=== PATIENT | male | born 1955 | race Caucasian/White ===

== ENCOUNTER 2023-01-22 03:03 | Emergency (ER) | payer MEDICARE, OTHER, SELFPAY ==
[2023-01-22 03:11] VITALS: BP 180/101; PULSE 110; RESP 16; TEMP 36.6; O2SAT 98; BMI 34.0
--- NOTE | 2023-01-22 03:17 | CRLHL7_ITS ---
For Patients: As a result of the Century Cures Act, medical imaging exams and procedure reports are released immediately into your electronic medical record. You may view this report before your referring provider. If you have questions, please contact your health care provider. INDICATION: Flank pain TECHNIQUE: CT Abdomen and pelvis without i.v. contrast. Coronal and sagittal reformats were obtained. COMPARISON: 03/16/2016 FINDINGS: Lower chest: Unremarkable. Liver: Moderate fatty infiltration of the liver is present. Spleen: Unremarkable. Pancreas: Unremarkable. Gallbladder: Numerous layering gallstones are noted in the gallbladder neck. Kidney: There is a stone in the mid left ureter measuring 6 mm and a 10 mm stone is seen in the left ureteropelvic junction because mild renal pelvic caliectasis. A parapelvic cyst is present within the right renal sinus. There is a nonobstructing stone in the left renal pelvis measuring 1.2 cm and a cluster of small caliceal stones are seen in the posterior left renal midzone. A small focus of gas is present within the left renal midzone calyx. Adrenal: Unremarkable. Bowel: Unremarkable. The appendix is normal in appearance and size. Vascular: Unremarkable. Lymph: Unremarkable. Peritoneum: Unremarkable. No pneumoperitoneum is seen. No significant ascites is noted. Pelvis: A small focus of gas is present within the decompressed bladder. Soft tissue: Unremarkable. Bone: Unremarkable for age. IMPRESSIONS: 1. There is a stone in the mid left ureter measuring 6 mm and a 10 mm stone is seen in the left ureteropelvic junction because mild renal pelvic caliectasis. 2. A small focus of gas is present within the left renal midzone calyx. Correlation with history and urinalysis is recommended to exclude a gas-forming urinary tract infection or recent intervention. Dictated by Antwon Rush MD @ 01/22/2023 3:46:28 AM Please note that all CT scans at this facility use dose modulation, iterative reconstruction, and/or weight-based dosing when appropriate to reduce radiation dose to as low as reasonably achievable. Dictated by: Antwon Rush MD @ 01/22/2023 03:46:32 (Electronically Signed)
--- NOTE | 2023-01-22 03:19 | ED.ABDPAIN ---
HPI - Abdominal Pain General Chief Complaint: Flank Pain Stated Complaint: Kidney Stones Time Seen by Provider: 01/22/23 03:08 History of Present Illness HPI narrative: Pt is a 67 year old gentleman with a long history of renal lithiasis who presents with 12 hours of left flank pain. Pt has had no change in his urination. No fever or chills, nausea or vomiting. Pain is severe and localized to the left flank. No recent history of stones. No other related symptoms. Pt otherwise has been feeling well. Related Data Previous Rx's Medication Instructions Recorded tamsulosin 0.4 mg capsule (Flomax) 0.4 mg PO DAILY Kidney Stones #14 01/22/23 caps Allergies Allergy/AdvReac Type Severity Reaction Status Date / Time No Known Drug Allergies Allergy Verified 01/22/23 03:13 Review of Systems Status of ROS Reports: 10 or more systems reviewed and unremarkable except as noted in History and below [facility] Medical History History of kidney stones ?Z87.442 - Personal history of urinary calculi (ICD-10) Social History Smoking Status: Never smoker Do you use any of these nicotine containing products: None How often do you have a drink containing alcohol: monthly or less How many standard drinks containing alcohol do you have on a typical day: 1 or 2 How often do you have six or more drinks on one occasion: Never AUDIT-C Alcohol total score: 1 Non-prescribed substance use: denies use Exam Narrative: Exam Narrative: EXAM GENERAL: Patient appears comfortable and well. EYES: No scleral icterus. LYMPH: No supraclavicular or cervical lymphadenopathy. SKIN: Visible skin seen during exam normal or with benign process only. EXT: No dependent lower extremity pedal edema. HEART: Regular rate and rhythm with no murmurs, rubs, or gallops. LUNGS: Clear to auscultation bilaterally with no crackles or wheezes. ABD: Soft, non tender, non distended. PSYCH: Good eye contact, speech is not pressured. Const: Vital Signs, click to edit/add: Vital Signs - 24 hr 01/22/23 03:11 01/22/23 03:35 01/22/23 03:30 Temperature 97.9 F 97.9 F Pulse Rate [Left P ulse Oximeter] 110 H Respiratory Rate 16 Blood Pressure [Ri ght Upper Arm] 180/101 H Pulse Oximetry 98 98 Oxygen Delivery Me thod Room Air Course Course Hospital Course: Pt seen and examined. CT abd and pelvis, cbc, bmp, ua ordered. 1 liter normal saline, 30 mg of Toradol and 4 mg of Zofran given. Vital Signs Vital signs: Initial Vital Signs Temperature 97.9 F 01/22/23 03:11 Temperature Source Temporal Artery Scan 01/22/23 03:11 Pulse Rate 110 H 01/22/23 03:11 Respiratory Rate 16 01/22/23 03:11 Blood Pressure 180/101 H 01/22/23 03:11 Blood Pressure Mean 127 01/22/23 03:11 Blood Pressure Position Sitting 01/22/23 03:11 Pulse Oximetry 98 01/22/23 03:11 Oxygen Delivery Method Room Air 01/22/23 03:11 Vital Signs Temperature 97.9 F 01/22/23 03:11 Pulse Rate 110 H 01/22/23 03:11 Respiratory Rate 16 01/22/23 03:11 Blood Pressure 180/101 H 01/22/23 03:11 Pulse Oximetry 98 01/22/23 03:11 Oxygen Delivery Method Room Air 01/22/23 03:11 Temperature 97.9 F 01/22/23 03:35 Pulse Rate 110 H 01/22/23 03:11 Respiratory Rate 16 01/22/23 03:11 Blood Pressure 180/101 H 01/22/23 03:11 Pulse Oximetry 98 01/22/23 03:30 Oxygen Delivery Method Room Air 01/22/23 03:11 MDM - Abdominal Pain MDM Narrative Medical decision making narrative: Pt is a 67 year old gentleman with a history of kidney stones who presents with left flank pain. Pt is noted to have a 10 mm and 6 mm stone in the left ureter. Pt improved with normal saline, toradol and zofran. Pt will be discharged to home on Flomax with prn oxycodone with PCP follow up this week and a likely Urology referral to follow. Medical Records Attestation: I reviewed the patient's medical records. Lab Data Labs: Lab Results 01/22/23 01/22/23 Range/Units 03:30 03:35 WBC 12.20 H (4.50-11.00) K/uL RBC 4.96 (4.30-5.90) m/uL Hgb 14.6 (13.5-17.5) gm/dL Hct 43.5 (37.0-53.0) % MCV 88 (80-100) fL MCH 29 (26-34) pg MCHC 34 (32-36) gm/dL RDW Coeff of Gin 12.2 (11.5-15.5) % Plt Count 160 (140-440) K/uL Neut % (Auto) 83.0 H (42.0-72.0) % Lymph % (Auto) 7.9 L (20-44) % [place] % (Auto) 8.4 (0.0-11.0) % Eos % (Auto) 0.1 (0.0-7.0) % Baso % (Auto) 0.1 (0.0-3.0) % Neut # (Auto) 10.10 H (1.7-7.0) K/uL Lymph # (Auto) 1.00 (0.90-2.90) K/uL [place] # (Auto) 1.00 H (0.00-0.90) K/UL Eos # (Auto) 0.00 (0.00-0.50) K/uL Baso # (Auto) 0.00 (0.00-0.30) K/uL Sodium 132 L (135-149) mmol/L Potassium 4.3 (3.6-5.1) mmol/L Chloride 98 (96-114) mmol/L Carbon Dioxide 27 (20-32) mmol/L BUN 15 (7-30) mg/dL Creatinine 1.1 (0.5-1.5) mg/dL Estimated Creat Clear 66.06 Estimated GFR 74 ml/min Glucose 151 H (60-115) mg/dL Calcium 9.0 (8.4-10.6) mg/dL Urine Color Yellow (Yellow) Urine Appearance Clear (Clear) Urine pH 5.5 (5.0-8.5) Ur Specific [place] 1.025 (1.000-1.030) Urine Protein Trace A (Negative) Urine Glucose (UA) Negative (Negative) Urine Ketones Trace A (Negative) Urine Blood 2+ A (Negative) Urine Nitrite Negative (Negative) Urine Bilirubin Negative (Negative) Urine Urobilinogen 0.2 (0.2-1.0) Ur Leukocyte Esterase 1+ A (Negative) Urine RBC 0-2 (0-2) Urine WBC 5-10 A (0-5) Ur Squamous Epith Cells Few (None-Few) Urine Bacteria Few A (None) Discharge Plan Discharge Clinical Impression: Renal lithiasis Patient Disposition: Home, Self-Care Condition: Stable Instructions: Kidney Stones (ED) Additional Instructions: Oxycodne and Flomax as discussed Plenty of fluids Follow up with PCP this coming week to discuss Urology referral Activity Level: No Restrictions Discharge Diet: Regular Prescriptions: New tamsulosin [Flomax] 0.4 mg capsule 0.4 mg PO DAILY Qty: 14 2RF Follow Up/Referrals: Josafat Do MD [Primary Care Provider] - Stand Alone Forms: [employer] Info Instructions
[2023-01-22 03:30] VITALS: O2SAT 98
[2023-01-22] MEDS: 0.9 % SODIUM CHLORIDE 1000 ml 1,000 ML IV (03:34)
[2023-01-22] MEDS: ONDANSETRON 2 MG/ML inj 4 MG IVP (03:34)
[2023-01-22 03:35] VITALS: TEMP 36.6
[2023-01-22] MEDS: KETOROLAC 30 MG/ML inj IVP (03:35)
[2023-01-22 03:41] LABS: Basophils Percent Auto 0.1 % (0.0-3.0); Eosinophils Percent Auto 0.1 % (0.0-7.0); Hematocrit 43.5 % (37.0-53.0); Hemoglobin* 14.6 gm/dL (13.5-17.5); Immature Granulocytes Pct Auto 0.5 %; Lymphocytes Percent Auto 7.9 % (20-44); Mean Corpuscular HGB Conc 34 gm/dL (32-36); Mean Corpuscular Hemoglobin 29 pg (26-34); Mean Corpuscular Volume 88 fL (80-100); Monocytes Percent Auto 8.4 % (0.0-11.0); Platelet Count* 160 K/uL (140-440); RDW Coefficient of Variation % 12.2 % (11.5-15.5); Red Blood Count 4.96 m/uL (4.30-5.90)
[2023-01-22 03:51] LABS: Appearance Urine Clear (Clear); Bilirubin Urine Negative (Negative); Blood Urine 2+ (Negative); Color Urine Yellow (Yellow); Glucose Urine Negative (Negative); Ketones Urine Trace (Negative); Leukocyte Esterase Urine 1+ (Negative); Nitrite Urine Negative (Negative); Protein Urine Trace (Negative); Specific Gravity Urine 1.025 (1.000-1.030); Urobilinogen Urine 0.2 (0.2-1.0); pH Urine 5.5 (5.0-8.5)
[2023-01-22 03:56] LABS: Bacteria Urine Few; RBC Urine 0-2 (0-2); Squamous Epithelial Cell Urine Few (None-Few)
[2023-01-22 03:57] LABS: Slide Review Reflex No
[2023-01-22 03:58] LABS: Chloride* 98 mmol/L (96-114); Potassium* 4.3 mmol/L (3.6-5.1); Sodium* 132 mmol/L (135-149)
[2023-01-22 04:01] LABS: Blood Urea Nitrogen* 15 mg/dL (7-30); Carbon Dioxide* 27 mmol/L (20-32); Creatinine* 1.1 mg/dL (0.5-1.5); Est. Creatinine Clearance* 66.06; Estimated Glomerular Filt Rate 74 ml/min; Glucose* 151 mg/dL (60-115)
[2023-01-22 04:13] VITALS: TEMP 36.6
[2023-01-22 04:24] VITALS: BP 165/84; PULSE 95; RESP 16; TEMP 36.8; O2SAT 98
[2023-01-22 04:25] VITALS: BP 165/84; PULSE 95; RESP 16; TEMP 36.8
== END 2023-01-22 04:25 | disposition home or self-care (01) ==
LOC: ED 04:10
PROVIDERS: Emergency Provider Internal Medicine; PCP Family Medicine
DX: N20.0 Calculus of kidney (principal)
CPT/HCPCS: 36415; 74176; 80048; 81003; 81015; 85025; 87086; 87186; 94761; 96374; 96375; 99283; 99284; J1885; J2405; J7030

== ENCOUNTER 2023-01-23 08:59 | Emergency (ER) | payer MEDICARE, OTHER, SELFPAY ==
[2023-01-23 09:07] VITALS: BP 152/80; PULSE 112; RESP 18; TEMP 37.2; O2SAT 93; BMI 34.0
--- NOTE | 2023-01-23 09:24 | ED_ITS ---
HPI - General Adult General Chief complaint: Nausea/Vomiting Stated complaint: Kidney stones on flomax having side effects Time Seen by Provider: 01/23/23 09:15 History of Present Illness HPI narrative: This 67-year-old male was seen yesterday and diagnosed with ureteral stone. He received prescriptions for Flomax and oxycodone. He returns today stating that his pain is pretty well controlled but he feels out of it and is having dry heaves. He also brings in a stone that he discharged into the toilet today. He had a 6 mm stone in the left mid ureter and another 10 mm stone at the ureteropelvic junction. It appears that he has passed the 6 mm stone. The 10 mm stone yesterday was nonobstructive. He has plans to follow-up with his primary physician and a consultation with a urologist. He does not report any fever or dysuria symptoms. Related Data Previous Rx's Medication Instructions Recorded tamsulosin 0.4 mg capsule (Flomax) 0.4 mg PO DAILY Kidney Stones #14 01/22/23 caps ketorolac 10 mg tablet 10 mg PO Q8H 5 days #15 tabs 01/23/23 ondansetron HCl 4 mg tablet 4 mg PO Q6H #20 tabs 01/23/23 Allergies Allergy/AdvReac Type Severity Reaction Status Date / Time No Known Drug Allergies Allergy Verified 01/22/23 03:13 Review of Systems Status of ROS: Reports: 10 or more systems reviewed and unremarkable except as noted in History and below Narrative: Constitutional: No fevers, no weight gain or loss. Eyes: No discharge. No vision changes. HENT: No congestion, no sore throat, no ear pain. Cardiovascular: No chest pain, no palpitations. Respiratory: No shortness of breath, no wheezes, no cough. Gastrointestinal: No diarrhea. Abdominal pain and flank pain at 2 or 3/10 in severity. Nausea and dry heaves. Genitourinary: No dysuria, no hematuria. Musculoskeletal: Normal range of motion. Skin: No rashes, no pruritis. Neurological: No dizziness, weakness, sensory change, speech change. Endo/Heme/Allergies: No bruising or bleeding. No polydipsia. Pysch: no suicidality, no anxiety, no insomnia. All other systems reviewed and are negative. [facility] Medical History History of kidney stones ?Z87.442 - Personal history of urinary calculi (ICD-10) Social History Smoking Status: Never smoker Do you use any of these nicotine containing products: None How often do you have a drink containing alcohol: monthly or less How many standard drinks containing alcohol do you have on a typical day: 1 or 2 How often do you have six or more drinks on one occasion: Never AUDIT-C Alcohol total score: 1 Non-prescribed substance use: denies use Exam Narrative: Exam Narrative: Constitutional: Well-developed, well-nourished, no acute distress. HEENT: Normocephalic, atraumatic. Neck: Normal range of motion. Nontender. Supple. Heart: Intact distal pulses. Lungs: No chest discomfort. No wheezes, rhonchi, or rales. Abdomen: Nontender. Back: Normal range of motion. Extremities: Normal range of motion. No injury. Skin: Intact. No rash. Warm. No erythema or pallor. Neurologic: No altered sensation. No weakness. Alert and oriented. Psychiatric: No suicidality. No anxiety or depression. No insomnia. Nursing notes and vitals signs are reviewed. Const: Vital Signs, click to edit/add: Vital Signs - 24 hr 01/23/23 09:07 Temperature 98.9 F Pulse Rate [Right Pulse Oximeter] 112 H Respiratory Rate 18 Blood Pressure [Ri ght Upper Arm] 152/80 H Pulse Oximetry 93 Oxygen Delivery Me thod Room Air Course Vital Signs Vital signs: Initial Vital Signs Temperature 98.9 F 01/23/23 09:07 Temperature Source Temporal Artery Scan 01/23/23 09:07 Pulse Rate 112 H 01/23/23 09:07 Respiratory Rate 18 01/23/23 09:07 Blood Pressure 152/80 H 01/23/23 09:07 Blood Pressure Mean 104 01/23/23 09:07 Blood Pressure Position Sitting 01/23/23 09:07 Pulse Oximetry 93 01/23/23 09:07 Oxygen Delivery Method Room Air 01/23/23 09:07 Vital Signs Temperature 98.9 F 01/23/23 09:07 Pulse Rate 112 H 01/23/23 09:07 Respiratory Rate 18 01/23/23 09:07 Blood Pressure 152/80 H 01/23/23 09:07 Pulse Oximetry 93 01/23/23 09:07 Oxygen Delivery Method Room Air 01/23/23 09:07 Temperature 98.9 F 01/23/23 09:07 Pulse Rate 112 H 01/23/23 09:07 Respiratory Rate 18 01/23/23 09:07 Blood Pressure 152/80 H 01/23/23 09:07 Pulse Oximetry 93 01/23/23 09:07 Oxygen Delivery Method Room Air 01/23/23 09:07 Medical Decision Making MDM Narrative Medical decision making narrative: This patient has kidney stones identified yesterday on CT imaging. He showed me a stone that he passed today. This is likely the 6 mm stone seen on imaging. His pain is well controlled but he feels out of it on oxycodone and does not have any medicine for nausea and vomiting. He received prescriptions for Toradol and Zofran. I advised him to use oxycodone if needed but this is likely contributing to his symptoms. He has plans to follow-up with his primary physician and with a urologist. Discharge Plan Discharge Clinical Impression: Renal lithiasis Patient Disposition: Home, Self-Care Condition: Improved Additional Instructions: Take medication as needed and indicated. Follow up with primary physician and urologist. Return if worsening. Prescriptions: New ondansetron HCl 4 mg tablet 4 mg PO Q6H Qty: 20 0RF ketorolac 10 mg tablet 10 mg PO Q8H 5 Days Qty: 15 0RF No Action tamsulosin [Flomax] 0.4 mg capsule 0.4 mg PO DAILY Qty: 14 2RF Follow Up/Referrals: Josafat Do MD [Primary Care Provider] - Stand Alone Forms: [employer] Info Instructions
== END 2023-01-23 09:51 | disposition home or self-care (01) ==
LOC: ED 09:49
PROVIDERS: Emergency Provider Emergency Medicine Emergency Medical Services; PCP Family Medicine
DX: N20.0 Calculus of kidney (principal)
CPT/HCPCS: 99283; 99284

== ENCOUNTER 2023-01-24 15:28 | Emergency (ER) | payer MEDICARE, OTHER, SELFPAY ==
[2023-01-24] VITALS (23 sets, daily range): BP systolic 165–188; BP diastolic 91–112; PULSE 113–128; RESP 16; TEMP 37.8–38.8; O2SAT 88–96; BMI 34.0
[2023-01-24 16:07] LABS: Bilirubin Urine 1+ (Negative); Blood Urine 3+ (Negative); Glucose Urine Negative (Negative); Ketones Urine 1+ (Negative); Leukocyte Esterase Urine Negative (Negative); Nitrite Urine Negative (Negative); Protein Urine 3+ (Negative); Specific Gravity Urine >= 1.030 (1.000-1.030); pH Urine 5.5 (5.0-8.5)
--- NOTE | 2023-01-24 16:18 | CRLHL7_ITS ---
For Patients: As a result of the Century Cures Act, medical imaging exams and procedure reports are released immediately into your electronic medical record. You may view this report before your referring provider. If you have questions, please contact your health care provider. Indication: Evaluate for left-sided ureteral stone Technique: Supine view abdomen was obtained. Comparison: CT abdomen and pelvis January 22, 2023 Findings: There is a moderate amount of gas is distention of the colon. There is a moderate amount of stool seen within the proximal colon. No evidence of obstruction. Unchanged appearance of calculi in the proximal left collecting system from comparison. There is no intraabdominal free air. The visualized osseus structures are grossly intact. Impression: Unchanged calculi within the proximal left collecting system and renal pelvis. Moderate gaseous distension of the colon appreciated. Dictated by Cachorro Shelby MD @ 01/24/2023 5:41:04 PM (Electronically Signed)
[2023-01-24 16:24] LABS: Appearance Urine Slightly Cloudy (Clear); Color Urine Yellow (Yellow)
[2023-01-24 16:25] LABS: Bacteria Urine Few; Squamous Epithelial Cell Urine Few (None-Few)
[2023-01-24] MEDS: 0.9 % SODIUM CHLORIDE 1000 ml 1,000 ML IV ×2 (16:40→18:49)
--- NOTE | 2023-01-24 16:44 | ED_ITS ---
HPI - General Adult General Chief complaint: Urogenital Problems, Male Stated complaint: Kidney stones Time Seen by Provider: 01/24/23 15:53 History of Present Illness HPI narrative: 67-year-old man presenting to the emergency department with No bowel movement now for 3 days. Feels particularly bloated. He also feels he isn't making much urine. There have been chills and feeling hot but they have not measured a fever. I would note he does have a fever on triage here today. This is his 3rd visit in the last 2 days. expresses in triage that he is being pumped full of drugs and they just want an answer. Apparently became rather nauseated and out of it with oxycodone as prescribed. Is no longer taking this. Otherwise ketorolac and Flomax. Has passed 2 stones today. Status post prostatectomy for prostate cancer some years ago. Long history of nephrolithiasis as well as stenting. I believe has a relationship with what would now be [facility] having seen some of the providers here in [place] Urinalysis reported positive today for E coli 2 types; 1 convincing colony. Susceptibilities are not back yet. Mr. Mike has had 1 dose of cephalexin today. CT imaging on the COMPARISON: 03/16/2016 FINDINGS: Lower chest: Unremarkable. Liver: Moderate fatty infiltration of the liver is present. Spleen: Unremarkable. Pancreas: Unremarkable. Gallbladder: Numerous layering gallstones are noted in the gallbladder neck. Kidney: There is a stone in the mid left ureter measuring 6 mm and a 10 mm stone is seen in the left ureteropelvic junction because mild renal pelvic caliectasis. A parapelvic cyst is present within the right renal sinus. There is a nonobstructing stone in the left renal pelvis measuring 1.2 cm and a cluster of small caliceal stones are seen in the posterior left renal midzone. A small focus of gas is present within the left renal midzone calyx. Adrenal: Unremarkable. Bowel: Unremarkable. The appendix is normal in appearance and size. Vascular: Unremarkable. Lymph: Unremarkable. Peritoneum: Unremarkable. No pneumoperitoneum is seen. No significant ascites is noted. Pelvis: A small focus of gas is present within the decompressed bladder. Soft tissue: Unremarkable. Bone: Unremarkable for age. IMPRESSIONS: 1. There is a stone in the mid left ureter measuring 6 mm and a 10 mm stone is seen in the left ureteropelvic junction because mild renal pelvic caliectasis. 2. A small focus of gas is present within the left renal midzone calyx. Correlation with history and urinalysis is recommended to exclude a gas-forming urinary tract infection or recent intervention. Related Data Home Medications Medication Instructions Recorded Confirmed cephalexin 500 mg capsule 500 mg PO TID 01/24/23 01/24/23 Previous Rx's Medication Instructions Recorded tamsulosin 0.4 mg capsule (Flomax) 0.4 mg PO DAILY Kidney Stones #14 01/22/23 caps ketorolac 10 mg tablet 10 mg PO Q8H 5 days #15 tabs 01/23/23 ondansetron HCl 4 mg tablet 4 mg PO Q6H #20 tabs 01/23/23 Allergies Allergy/AdvReac Type Severity Reaction Status Date / Time No Known Drug Allergies Allergy Verified 01/24/23 15:49 Review of Systems Status of ROS: Reports: 6 or more systems reviewed and unremarkable except as noted in History and below [facility] Medical History History of kidney stones ?Z87.442 - Personal history of urinary calculi (ICD-10) Social History Smoking Status: Never smoker Do you use any of these nicotine containing products: None Second hand tobacco smoke exposure: No How often do you have a drink containing alcohol: monthly or less How many standard drinks containing alcohol do you have on a typical day: 1 or 2 How often do you have six or more drinks on one occasion: Never AUDIT-C Alcohol total score: 1 Non-prescribed substance use: denies use Exam Narrative: Exam Narrative: Pleasant. A little flushed. Quiet. In nerves 2 through 12 intact. He is responding quickly easily to questions. Breathing easily. Lungs appear to be clear. Extremities are well perfused. Trace lower extremity edema. Heart is tachycardic in a regular rhythm. Abdomen is distended with mild discomfort generally and diffusely tympanitic. Sore more so perhaps in the suprapubic area. Not demonstrating flank tenderness. Oropharynx is sticky. Const: Vital Signs, click to edit/add: Vital Signs - 24 hr 01/24/23 15:40 01/24/23 17:33 01/24/23 15:59 Temperature 100.6 F H 100.1 F H Pulse Rate 120 H Pulse Rate [Pulse Oximeter] 120 H Respiratory Rate 16 Blood Pressure Blood Pressure [Ri ght Upper Arm] 186/112 H Pulse Oximetry 93 95 Oxygen Delivery Me thod Room Air 01/24/23 16:00 01/24/23 16:02 01/24/23 16:15 Temperature Pulse Rate 115 H 116 H 118 H Pulse Rate [Pulse Oximeter] Respiratory Rate Blood Pressure 185/103 H Blood Pressure [Ri ght Upper Arm] Pulse Oximetry 95 94 94 Oxygen Delivery Me thod 01/24/23 17:21 01/24/23 17:23 01/24/23 17:31 Temperature Pulse Rate 125 H 114 H 113 H Pulse Rate [Pulse Oximeter] Respiratory Rate Blood Pressure 185/102 H 174/105 H Blood Pressure [Ri ght Upper Arm] Pulse Oximetry 94 95 94 Oxygen Delivery Me thod 01/24/23 17:32 01/24/23 18:01 01/24/23 18:31 Temperature Pulse Rate 114 H 122 H 121 H Pulse Rate [Pulse Oximeter] Respiratory Rate Blood Pressure 186/104 H 188/103 H Blood Pressure [Ri ght Upper Arm] Pulse Oximetry 95 96 94 Oxygen Delivery Me thod 01/24/23 18:45 01/24/23 19:00 01/24/23 19:01 Temperature 102 F H Pulse Rate 120 H 116 H 118 H Pulse Rate [Pulse Oximeter] Respiratory Rate Blood Pressure 184/104 H Blood Pressure [Ri ght Upper Arm] Pulse Oximetry 93 94 95 Oxygen Delivery Me thod 01/24/23 19:15 01/24/23 20:20 01/24/23 19:30 Temperature 100.5 F H Pulse Rate 123 H 125 H Pulse Rate [Pulse Oximeter] Respiratory Rate Blood Pressure Blood Pressure [Ri ght Upper Arm] Pulse Oximetry 93 92 Oxygen Delivery Me thod 01/24/23 19:31 01/24/23 19:45 01/24/23 20:00 Temperature Pulse Rate 123 H 124 H 122 H Pulse Rate [Pulse Oximeter] Respiratory Rate Blood Pressure 185/108 H Blood Pressure [Ri ght Upper Arm] Pulse Oximetry 92 90 88 Oxygen Delivery Me thod 01/24/23 20:01 01/24/23 20:15 01/24/23 16:00 Temperature Pulse Rate 125 H 128 H Pulse Rate [Pulse Oximeter] Respiratory Rate Blood Pressure 165/91 H Blood Pressure [Ri ght Upper Arm] Pulse Oximetry 89 90 92 Oxygen Delivery Me thod Documenting provider has reviewed patient's vital signs: yes Course Vital Signs Vital signs: Initial Vital Signs Temperature 100.6 F H 01/24/23 15:40 Temperature Source Temporal Artery Scan 01/24/23 15:40 Pulse Rate 120 H 01/24/23 15:40 Respiratory Rate 16 01/24/23 15:40 Blood Pressure 186/112 H 01/24/23 15:40 Blood Pressure Mean 136 01/24/23 15:40 Blood Pressure Position Supine 01/24/23 15:40 Pulse Oximetry 93 01/24/23 15:40 Oxygen Delivery Method Room Air 01/24/23 15:40 Vital Signs Temperature 100.6 F H 01/24/23 15:40 Pulse Rate 120 H 01/24/23 15:40 Respiratory Rate 16 01/24/23 15:40 Blood Pressure 186/112 H 01/24/23 15:40 Pulse Oximetry 93 01/24/23 15:40 Oxygen Delivery Method Room Air 01/24/23 15:40 Temperature 100.5 F H 01/24/23 20:20 Pulse Rate 128 H 01/24/23 20:15 Respiratory Rate 16 01/24/23 15:40 Blood Pressure 165/91 H 01/24/23 20:01 Pulse Oximetry 90 01/24/23 20:15 Oxygen Delivery Method Room Air 01/24/23 15:40 Medical Decision Making MDM Narrative Medical decision making narrative: Given findings on CT I would expect some stone remains. I am concerned regarding tachycardia. Concern of infected stone. IV will be placed. IV fluids. Blood cultures collected. Mr. Mike at least meets SIRS criteria. I do have sepsis concerns. KUB requested which shows by my read a large stone remaining at the renal collecting system. Mr. Mike has passed a couple more stones here in the ER. Given what might be E coli in urine culture from 2 days ago and suspected source I have ordered for some Rocephin although might need more typical sepsis coverage. White count has improved today from the 25th however creatinine has increased to 1.7 from 1.1. CRP finally returns at more than 27. Urinalysis still looks potentially worse. I do call to [facility] on-call Dr. Garnica who is recommending transfer and potential stenting. Discussed other antibiotics but Rocephin acceptable at this time. Reaching out to [facility] -- they do have beds available with a wait time of 4-8 hours. This is at 18 30. Pending call from hospitalist. Accepted to [facility] Lab Data Lab results reviewed: Yes I reviewed the patient's lab results Labs: Lab Results 01/24/23 01/24/23 Range/Units 15:55 17:04 WBC 8.92 (4.50-11.00) K/uL RBC 4.46 (4.30-5.90) m/uL Hgb 13.1 L (13.5-17.5) gm/dL Hct 39.3 (37.0-53.0) % MCV 88 (80-100) fL MCH 29 (26-34) pg MCHC 33 (32-36) gm/dL RDW Coeff of Gin 12.9 (11.5-15.5) % Plt Count 125 L (140-440) K/uL Neut % (Auto) 76.6 H (42.0-72.0) % Lymph % (Auto) 7.0 L (20-44) % Nolan % (Auto) 14.6 H (0.0-11.0) % Eos % (Auto) 0.1 (0.0-7.0) % Baso % (Auto) 0.2 (0.0-3.0) % Neut # (Auto) 6.80 (1.7-7.0) K/uL Lymph # (Auto) 0.60 L (0.90-2.90) K/uL Nolan # (Auto) 1.30 H (0.00-0.90) K/UL Eos # (Auto) 0.01 (0.00-0.50) K/uL Baso # (Auto) 0.02 (0.00-0.30) K/uL Sodium 131 L (135-149) mmol/L Potassium 4.2 (3.6-5.1) mmol/L Chloride 95 L (96-114) mmol/L Carbon Dioxide 27 (20-32) mmol/L BUN 19 (7-30) mg/dL Creatinine 1.7 H (0.5-1.5) mg/dL Estimated Creat Clear 42.74 Estimated GFR 44 ml/min Glucose 145 H (60-115) mg/dL Calcium 8.8 (8.4-10.6) mg/dL C-Reactive Protein > 27.0 H (0.5-1.0) mg/dL Procalcitonin 4.66 H (<0.50) ng/mL Urine Color Yellow (Yellow) Urine Appearance Slightly Cloudy A (Clear) Urine pH 5.5 (5.0-8.5) Ur Specific [place] >= 1.030 (1.000-1.030) Urine Protein 3+ A (Negative) Urine Glucose (UA) Negative (Negative) Urine Ketones 1+ A (Negative) Urine Blood 3+ A (Negative) Urine Nitrite Negative (Negative) Urine Bilirubin 1+ A (Negative) Urine Urobilinogen 1.0 (0.2-1.0) Ur Leukocyte Esterase Negative (Negative) Urine RBC 5-10 A (0-2) Urine WBC 5-10 A (0-5) Ur Squamous Epith Cells Few (None-Few) Urine Bacteria Few A (None) SARS-CoV-2 (PCR) Negative SARS-CoV-2 (Negative) Critical Care Time Critical Care Time Total Critical Care Time in Minutes: 45 Discharge Plan Discharge Clinical Impression: UTI (urinary tract infection), Calculus, ureteral, Acute kidney injury, SIRS (systemic inflammatory response syndrome) Patient Disposition: Xfer [facility] Discharge Location: [facility] Condition: Stable Prescriptions: No Action tamsulosin [Flomax] 0.4 mg capsule 0.4 mg PO DAILY Qty: 14 2RF ondansetron HCl 4 mg tablet 4 mg PO Q6H Qty: 20 0RF ketorolac 10 mg tablet 10 mg PO Q8H 5 Days Qty: 15 0RF cephalexin 500 mg capsule 500 mg PO TID Stand Alone Forms: MyHealth Info Instructions
[2023-01-24 17:21] LABS: Basophils Absolute Auto 0.02 K/uL (0.00-0.30); Basophils Percent Auto 0.2 % (0.0-3.0); Eosinophils Absolute Auto 0.01 K/uL (0.00-0.50); Eosinophils Percent Auto 0.1 % (0.0-7.0); Hematocrit 39.3 % (37.0-53.0); Hemoglobin* 13.1 gm/dL (13.5-17.5); Immature Granulocytes Abs Auto 0.13 K/uL (0.00-0.30); Immature Granulocytes Pct Auto 1.5 %; Mean Corpuscular HGB Conc 33 gm/dL (32-36); Mean Corpuscular Hemoglobin 29 pg (26-34); Mean Corpuscular Volume 88 fL (80-100); Monocytes Percent Auto 14.6 % (0.0-11.0); Neutrophils Percent Auto 76.6 % (42.0-72.0); Platelet Count* 125 K/uL (140-440); RDW Coefficient of Variation % 12.9 % (11.5-15.5); Red Blood Count 4.46 m/uL (4.30-5.90); Slide Review Reflex No; White Blood Count* 8.92 K/uL (4.50-11.00)
[2023-01-24 17:38] LABS: Chloride* 95 mmol/L (96-114); Potassium* 4.2 mmol/L (3.6-5.1); Sodium* 131 mmol/L (135-149)
[2023-01-24 17:40] LABS: Creatinine* 1.7 mg/dL (0.5-1.5); Est. Creatinine Clearance* 42.74; Estimated Glomerular Filt Rate 44 ml/min
[2023-01-24 17:41] LABS: Blood Urea Nitrogen* 19 mg/dL (7-30); Carbon Dioxide* 27 mmol/L (20-32); Glucose* 145 mg/dL (60-115)
[2023-01-24 17:42] LABS: Calcium* 8.8 mg/dL (8.4-10.6)
[2023-01-24 17:56] LABS: SARS PCR* Negative SARS-CoV-2 (Negative)
[2023-01-24 18:07] LABS: C Reactive Protein* > 27.0 mg/dL (0.5-1.0)
[2023-01-24] MEDS: cefTRIAXone 1 GM in 0.9 % SODIUM CHLORIDE Mini-bag 100 ML IVPB (18:14)
[2023-01-24 19:09] LABS: Procalcitonin* 4.66 ng/mL (<0.50)
[2023-01-24] MEDS: ACETAMINOPHEN 500 MG TABLET 1000 MG PO (19:25)
--- NOTE | 2023-01-24 20:23 | ED.NURSE ---
RN report given to Jamia. Patient will transfer to [address] [place] [address] with [facility].
== END 2023-01-24 20:33 | disposition short-term general hospital (02) ==
PROVIDERS: Emergency Provider Family Medicine; PCP Family Medicine
DX: N39.0 Urinary tract infection, site not specified (principal); N20.1 Calculus of ureter; R65.10 Systemic inflammatory response syndrome (SIRS) of non-infectious origin without acute organ dysfunction; N17.9 Acute kidney failure, unspecified
CPT/HCPCS: 36415; 74018; 80048; 81001; 84145; 85025; 86140; 87040; 87086; 87186; 87635; 94761; 96365; 99284; 99285; 99291; A9270; J0696; J7030

== ENCOUNTER 2023-01-24 20:25 | Outpatient (CLI) | payer MEDICARE, OTHER, SELFPAY | END 2023-01-24 20:26 | disposition home or self-care (01) | LOC: AMB 01-26 09:12 | PROVIDERS: PCP Family Medicine; Visit Provider Family Medicine | DX: R10.9 Unspecified abdominal pain (principal) | CPT/HCPCS: A0425; A0426 ==

== ENCOUNTER 2024-11-03 08:22 | Emergency (ER) | payer MEDICARE, OTHER, SELFPAY ==
--- OUTSIDE RECORDS SUMMARY | 2024-11-03 08:26 | XMS_ITS | Clinical Summary ---
Author Organization [facility] Address [place], [place] [address] Care Team Providers Care Quality Control Analyst Name Role Phone Josafat Do MD Primary Care Provider [phone] Maurice Roa MD Unavailable [phone] Allergies No known active allergies Medications polyethylene glycol (MIRALAX; GLYCOLAX) 17 g per packet packetIndication s:Constipation, unspecified constipation type Take 17 g by mouth or nasogastric tube once daily if needed for Constipation. 30 Packet 01/27/20 23 Active acetaminophen (TYLENOL EXTRA STRGTH) 500 mg tablet Take 1,000 mg by mouth every 6 hours if needed for Pain. Max acetaminophen dose: 4000mg in 24 hrs. Active oxyCODONE-acetam inophen (PERCOCET) 5-325 mg per tabletIndication s:Post-operative state Take 1 Tablet by mouth every 6 hours if needed for Pain. Max acetaminophen dose: 4000mg in 24 hrs. 10 Tablet 02/17/2023 11:43 AM CDT 02/18/20 23 Active Active Problems Problem Noted Date Diagnosed Date JOHN (acute kidney injury) 01/25/2023 Urinary tract obstruction by kidney stone 2022 Adenomatous colon polyp 09/26/2018 Overview (09/26/2018): Colonoscopy 08/2018 polyp, repeat in 5 years Erectile dysfunction following radical prostatec phil 10/20/2016 Benign non-nodular prostatic hyperplasia 016 Prostate cancer 12/10/2015 Kidney stones 11/24/2011 Immunizations Name Administration Dates Next Due DT (Age < 7 years) 12/08/2005 TD, UNSPECIFIED 12/08/2005 Td (Age >=7 Years) 12/08/2005 Td, Preservative Free (age >= 7 Years) 6 Tdap 05/31/2016 Family History Medical History Relation Name Comments Hypertension Brother Good Health Father Hypertension Father Good Health Mother Relation Name Status Comments Brother Father Mother Social History Tobacco Use Types Packs/Day Years Used Date Smoking Tobacco: Never Smokeless Tobacco: Never Tobacco Cessation:Counseling Given: Yes Alcohol Use Standard Drinks/Week Comments Not Currently 0 (1 standard drink = 0.6 oz pur e alcohol) 3 times per year Social Connections Answer Date Recorded Frequency of Communication with Friends and Fami ly Not on file 02/07/2023 Sex and Gender Information Value Date Recorded Sex Assigned at Not on file Legal Sex Male 6:33 AM INTELLIGENCE CONSULTANT Gender Identity Not on file Sexual Orientation Not on file 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 file Not on file Not on file Obstetrics History Last Filed Vital Signs Vital Sign Reading Time Taken Comments Blood Pressure 140/76 02/17/2023 12:00 PM CDT Pulse 78 02/17/2023 12:00 PM CDT Temperature 36.2 C (97.2 F) 02/17/2023 12:00 PM CDT Respiratory Rate 14 02/17/2023 12:00 PM CDT Oxygen Saturation 98% 02/17/2023 12:00 PM CDT Inhaled Oxygen Concentration - - Weight 96.2 kg (212 lb) 02/17/2023 8:14 AM CDT Height 175.3 cm (5' 9) 02/17/2023 8:14 AM CDT Body Mass Index 31.31 02/17/2023 8:14 AM CDT Plan of Treatment Health Maintenance Due Date Last Done Comments Depression screening for age 12+ 1968 Hepatitis C screening for ag e 18-79 1974 Pneumococcal series for age 50+ (1 of 2 - PCV) 1975 Zoster (shingles) series for age 50+ (1 of 2) 2006 Lipids for age 45-75 01/23/2015 01/23/2010 Medicare Wellness for age 65+ 2021 Colonoscopy through age 75 09/25/2022 09/25/2018, BMI (ht and wt on same day) for age 18+ 02/12/2024 02/11/2023, 06/26/2018, 06/08/2017, Additional history exists COVID-19 vaccine series ( season) 2024 Influenza for age 65+ 07/01/2024 Tetanus booster 05/31/2026 05/31/2016, 05/2006, 12/08/2005, Additional history exists RSV vaccine for adults or (1 - 1-dose 75+ series) 2031 Tdap Completed 05/31/2016 Medical Devices Implanted Type Area Wrapper Dipper Device Identifier Shelf Expiration Date Model / Serial / Lot Stent Uret [id number] Contour - [id number] Implanted:Qty: 1 on 01/25/2023 by Moe Ayon MD at [facility] Left: Ureter [facility] 07/22/2025 [id number] / / [id number] Stent Uret [id number] Contour - [id number] Implanted:Qty: 1 on 02/17/2023 by Renaldo Moser MD at [facility] Left: Ureter [facility] 10/14/2025 [id number] / / [id number] Procedures Procedure Name Priority Date/Time Associated Diagnosis Comments SCAN-COLONOSCOPY 09/25/2018 12:0 0 PM INTELLIGENCE CONSULTANT LIPID PANEL Routine 01/23/2010 8:36 AM CDT Screening for lipoid disorders from Last 3 Months or Most Recently Relevant to Health Maintenance Results * SCAN-COLONOSCOPY (09/25/2018 12:00 PM INTELLIGENCE CONSULTANT) us Scanner OTHER Final Result * (ABNORMAL) LIPID PANEL (01/23/2010 8:36 AM CDT) CHOLESTEROL,TOTAL 206(H) 110 - 199 mg/dL [facility] TRIGLYCERIDES 174(H) <150 mg/dL [facility] HDL CHOLESTEROL 47 >40 mg/dL [facility] CHOL/HDL RATIO 4.[address] [facility] LDL CHOLESTEROL 124 <131 mg/dL [facility] PATIENT STATUS Fasting [facility] Blood specimen (specimen) BLOOD SPECIMEN / Unknown 01/23/2010 8:36 AM CDT 01/23/2010 8:31 AM CDT us Josafat Do MD CHEMISTRY Final Resu lt [facility] [address] [place], [place] [id number] from Last 3 Months or Most Recently Relevant to Health Maintenance Insurance [employer] [place] ONLY [employer] HB MEDICARE PART A HB ONLY MEDICARE PART B HB ONLY [employer] Member Subscriber Plan / Payer (Ef fective 2018-Present) Name:CeeAdán Member ID:[id number] Relation to Subscriber:Self Name:CeeAdán Subscriber ID:[id number] Payer ID:Not on file Group ID:Not on file Type:Not on file Address: [address] [place] [address] Advance Directives Documents on File Type Date Recorded Patient Marketing Content Specialist Expl anation Healthcare Directive 08/01/2018 018 * Full Code (Latest Code Status on File) Date Activated Date Inactivated Comments 02/17/2023 7:42 AM 02/17/2023 3:11 PM Question Answer Comments Code Status Discussion: Not Discussed * Full Code Date Activated Date Inactivated Comments 01/24/2023 10:02 PM 01/26/2023 4:56 PM Question Answer Comments Code Status Discussion: Reviewed Preferences Care Teams Quality Control Analyst Relationship Specialty Start Date End Date Josafat Do MD [address] [place] [address] PCP - General 12/31/09 Maurice Roa MD [address] [place] [address] Urology Surgery - Urology 12/09/11
--- OUTSIDE RECORDS SUMMARY | 2024-11-03 08:26 | XMS_ITS | Referral Summary ---
Author Organization [facility] Address [address] [place] [id number] Care Team Providers Care Mechanical Maintenance Technician Name Role Phone Josafat Do MD Primary Care Provider [phone] Allergies No known active allergies Medications No known medications Active Problems Problem Noted Date Diagnosed Date CA of prostate 06/21/2016 Immunizations Name Administration Dates Next Due DT (PEDS <7y) 12/08/2005 Td,adult,historic,unspecified 12/08/2005 Social History Tobacco Use Types Packs/Day Years Used Date Smoking Tobacco: Never Smokeless Tobacco: Never Alcohol Use Standard Drinks/Week Comments Yes 0 (1 standard drink = 0.6 oz pur e alcohol) 1/month Adolescent Education Answer Date Record ed Getting School Help Needed Not on file 07/22 Sex and Gender Information Value Date Recorded Sex Assigned at Not on file Legal Sex Male 9:16 AM CDT Gender Identity Not on file Sexual Orientation Not on file Last Filed Vital Signs Vital Sign Reading Time Taken Comments Blood Pressure 142/91 06/15/2018 4:35 PM CDT Pulse 80 06/15/2018 4:35 PM CDT Temperature 36.9 C (98.4 F) 06/15/2018 1:52 PM CDT Respiratory Rate 16 06/15/2018 4:35 PM CDT Oxygen Saturation 95% 06/15/2018 4:35 PM CDT Inhaled Oxygen Concentration - - Weight 99.8 kg (220 lb) 06/15/2018 1:45 PM CDT Height 175.3 cm (5' 9.02) 06/21/2016 9:41 AM CD T Body Mass Index 32.47 06/21/2016 9:41 AM CDT Plan of Treatment Not on file Insurance [id number] [id number] [employer] Advance Directives For more information, please contact: [phone] * Full Code (Latest Code Status on File) Date Activated Date Inactivated Comments 06/21/2016 6:00 PM 06/23/2016 7:21 PM Care Teams Mechanical Maintenance Technician Relationship Specialty Start Date End Date Josafat Do MD PCP - General Family Practice 06/08/16
--- OUTSIDE RECORDS SUMMARY | 2024-11-03 08:26 | XMS_ITS | Data Portability ---
Author Organization [facility], [facility] Address [address] [place] [address] Care Team Providers Care Foam Cutting Supervisor Name Role Phone PETER CHAVIRA ([facility] Primary Care Provider Assessment No assessment recorded. Plan of Treatment Reminders Order Date Submit Date Provider Last Modified By Organization Details Last Modified Time Details Appointments None recorded. Lab kidney stone, 24-hour urine panel 2022 023 [email or web address] 30 [facility], [address], [place], [address], 3 09:31:54 PSA, total, serum or plasma 2022 023 [email or web address] 30 [facility], [address], [place], [address], 3 09:31:55 Referral None recorded. Procedures None recorded. Surgeries None recorded. Imaging CT, abdomen + pelvis, w/o contrast 2022 023 [email or web address] 30 Not available 3 09:25:06 Medication Orders None recorded. Patient TargetsNo targets recorded. Patient InstructionsNo instructions recorded. Reason for Referral None Reported. Results Created Date Observation Date Name Description Value Unit Range Abnormal Flag Note LastModifiedBy Organization Detail LastModifiedTime Result Notes None recorded. Problems Name Problem SNOMED Code Status Onset Date Resolution Date Notes Provider Name and Address Organization Details Recorded Time Kidney stone 43098878 Active 2011 [place] [facility] 3 09:16:19 Prostate specific antigen above reference range 963272060 Active 2011 790.93 : ELEVATED PSA - Notes:PSA 6.43 Kendal dumont [facility] 3 09:16:19 Malignant tumor of prostate 049531485 Active 2015 Kendal dumont [facility] 3 09:16:19 Acute injury of kidney 592456072657 72592 Active 2022 Kendal dumont [facility] 3 09:16:19 Benign prostatic hyperplas ia 596956963 Active 2015 Kendal dumont [facility] 3 09:16:19 Erectile dysfuncti on following radical prostatec phil 863543790543 101 Active 2015 Kendal dumont [facility] 3 09:16:19 [place] us polyp of colon 522585963 Active 2017 Kendal dumont [facility] 3 09:16:19 Urinary tract obstructi on 4554560 Active 2022 Kendal dumont [facility] 3 09:16:19 Problem Notes None recorded. Procedures Surgical History Date Name Laterality Status Provider Name and Address Organization Details Recorded Time 3 Cystoscopy with foreign body/stent removal completed Renaldo Moser MD [address], [place], [address] [place] [address] Urolog 03/01/2023 23:13:06 Imaging Results None recorded. Procedure Notes None recorded. Medical Equipment None Reported. Allergies Allergen ID Allergen Name Allergen Category Reaction Reaction Severity Criticality Documentation Date Start Date Code Code System Note Provider Name and Address Organization Details Recorded Time [id number] 792702472 1800039s3 2824e No known allergy (situatio n) Not available Not available Not available Not available 09/26/2023 57554 6003 SNOMED Not Available Not Available Not Available Medications Name Sig Start Date Stop Date Status Note LastModified by Organization Details LastModified Time polyethylene glycol 3350 17 gram oral powder packet 17 g by oral route. 2022 active Not Available Not Available Not Avai lable ondansetron HCl 4 mg tablet Take 1 tablet (4mg) by mouth every 6 hours. 03/02 completed Not Available Not Available Not Available ketorolac 10 mg tablet TAKE ONE TABLET BY MOUTH EVERY EIGHT HOURS for 5 days 03/02 completed Not Available Not Available Not Available oxycodone-ac etaminophen 5 mg-325 mg tablet 03/02 completed Not Available Not Available Not Available tamsulosin 0.4 mg capsule TAKE ONE CAPSULE BY MOUTH ONE TIME DAILY for kidney stones 03/02 completed Not Available Not Available Not Available potassium citrate ER 10 mEq (1,080 mg) tablet,exten ded release TAKE ONE TABLET BY MOUTH TWICE DAILY* active Not Available Not Available No t Available cephalexin 500 mg capsule TAKE ONE CAPSULE BY MOUTH THREE TIMES DAILY FOR 10 DAYS 03/02 completed Not Available Not Available Not Available cefuroxime axetil 500 mg tablet 03/02 completed Not Available Not Available Not Available oxycodone 5 mg tablet 03/02 completed Not Available Not Available Not Available oxycodone 5 mg tablet,oral ONLY (not feeding tubes) 5 mg every 6 hours by oral route. 01/27 completed Not Available Not Available Not Available Vitals Date Recorded Body height Body mass index (BMI) Body weight Provider Name and Address Organization Details Last Updated DateTime 03/02/2023 175.26 cm 31.6 kg/m2 65374.77 g Renaldo Moser MD [address] [place] [address], [phone] 03/02/2023 10:41:50 Social History Question Answer Notes LastModified by Organizat ion Details LastModified Time Tobacco Smoking Status Never Smoker Renaldo Moser MD [address] [place] [address], [address], [facility] 03/02/2023 10:43:53 What Is Your Level Of Alcohol Consumption? Occasional Information not available 03/02/2023 How Many Times Per Week Do You Consume Alcohol? Less Than 1 Time Per Week Information not available 03/02/2023 What Is Your Level Of Caffeine Consumption? Moderate Information not available 03/02/2023 Are You Currently Employed? No Information not available 03/02/2023 Recreational Drug Use No Information not available 03/02/2023 What Was The Date Of Your Most Recent Tobacco Screening? 03/02/2023 Information not available 03/02/2023 What Is Your Relationship Status? Information not available 03/02/2023 Do You Use Any Illicit Or Recreational Drugs? No Information not available 03/02/2023 Has Tobacco Cessation Counseling Been Provided? No Information not available 03/02/2023 Do You Or Have You Ever Used Any Other Forms Of Tobacco Or Nicotine? No Information not available 03/02/2023 Sex: Unknown Functional Status None recorded. Mental Status None recorded. Family History Nothing Reported. Medical History No medical history recorded. Immunizations Vaccine Type Date Status Note Provider Nam e and Address Organization Details Recorded Time DT (pediatric) 6 completed Kendal dumont [facility] 09/26/2023 09:15:52 Td(adult) unspecified formulation 6 completed Kendal dumont [facility] 09/26/2023 09:16:02 Tdap 6 completed Kendal dumont [facility] 09/26/2023 09:16:03 Td (adult), 5 Lf tetanus toxoid, preservative free, adsorbed 6 completed Kendal dumont [facility] 09/26/2023 09:15:52 Td (adult), 2 Lf tetanus toxoid, preservative free, adsorbed 6 completed Kendal dumont [facility] 09/26/2023 09:16:03 Past Encounters Encounter ID Performer Location Encounter Start Date Encounter Closed Date Diagnosis/Indication Diagnosis SNOMED-CT Code Diagnosis ICD10 Code [id number] Renaldo Moser MD [facility] [address] [phone] 03/02/2023 10:26:53 03/08/2023 14:21:19 Kidney stone 01474599 N20.0 History of malignant neoplasm of prostate 929092197 Z85.46 Erectile d ysfunction following radical prostatectomy 1063813313 67396 N52.31 Health Concerns Section Related Observation LastModified by Organization Detai ls LastModified Time None Recorded Concern Status LastModified by Organization Details LastModified Time None Recorded Advance Directives Directive None Recorded Payers Encounter Date Sequence Insurance Name Policy Number Policy Tate Covered Member ID Tate Member ID Guarantor Name 03/02/2023 1 MED[employer] - PRIME SOLUTION (MEDICARE REPLACEMENT/ ADVANTAGE - HMO) [id number] Adán Mike [id number] Adán Mike Notes Date Note Type Note Provider Name and Address Organization Details Recorded Time 03/02/2023 text/html 67 yo male with H/O kidney stones (90% Calcium oxalate monohydrate and 10% Calcium phosphate) and prostate cancer - pT2c Nx Mx - Shala 3+4 = 7 - s/p RAL prostatectomy (negative margins) with Dr. Mccartney - (06/21/16) - s/p Left Ureteroscopy with HLL (02/17/23) - stone - 60% Hydroxyapatite, 40% CaOx monohydrate 03/02/23 - He presents for Left ureteral stent removal. He reports no change in urination - has rare incontinence with coughing. He voids every 2-3 hours during the day and 1x/night. He use [facility] for erections. PSA - 6.13 (01/01/14)- 8.28 (03/17/15)- 12.27 (81782)- 13.58 (02/25/16)- < 0.03 (10/12/16)- < 0.03 (01/26/17)- < 0.03 (05/24/17)- < 0.03 (12/13/17)- < 0.03 (08/07/18)- < 0.03 (03/12/19)- < 0.03 (04/16/20) CT scan (01/22/23) - Left - 6 mm stone (mid-ureter) - 10 mm stone (UPJ) - 10 mm stone (pelvis/mid-pole) - 20+ (2-6 mm) stones (mid/lower pole)- Right - no stones Renaldo Moser MD [address] [facility] [address], [place], [address], [facility] 03/02/2023 22:53:46
--- OUTSIDE RECORDS SUMMARY | 2024-11-03 08:26 | XMS_ITS | Clinical Summary ---
Author Organization [place] Address [address] [place] [address] Care Team Providers Care Senior Director Of [employer] Name Role Phone Josafat Do MD Primary Care Provider +1- [phone] Allergies No known active allergies Medications No [...] of Treatment Not on file Insurance [id number] [id number] [employer] Advance Directives For more information, please contact: [phone] * Full Code (Latest Code Status on File) Date Activated Date Inactivated Comments 06/21/2016 6:00 PM 06/23/2016 7:21 PM Care Teams Senior Director Of [employer] Relationship Specialty Start Date End Date Josafat Do MD PCP - General Family Practice 06/08/16
[2024-11-03 08:44] VITALS: BP 167/96; PULSE 106; RESP 18; TEMP 37.9; O2SAT 92; BMI 32.5
--- NOTE | 2024-11-03 09:34 | ED_ITS ---
HPI - General Adult General Time Seen by Provider: 09:34 Date Seen: 11/03/24 Chief complaint: Cough Stated complaint: congested/cough Time Seen by Provider: 11/03/24 09:34 Source: patient and RN notes reviewed Mode of arrival: ambulatory Limitations: no limitations History of Present Illness HPI narrative: This 69-year-old male is coming in with coughing, upper respiratory illness starting Tuesday. He did not start with fevers until last night. This started more with nasal congestion. He states when he gets a cold it will typically start with a sore throat but did not. He has been coughing, mostly nonproductive, occasion will get a little sputum up. Feels like it is difficult to breathe which makes him feel short of breath. He states he does not get any shots, no COVID or influenza vaccination. He is not a smoker. Related Data Home Medications ?Medication ?Instructions ?Recorded ?Confirmed No Known Home Medications 11/03/24 11/03/24 Allergies Allergy/AdvReac Type Severity Reaction Status Date / Time rabbit dander Allergy Mild cough, Verified 11/03/24 08:50 watery eyes Review of Systems Status of ROS: Reports: 6 or more systems reviewed and unremarkable except as noted in History and below [facility] Medical History History of kidney stones ?Z87.442 - Personal history of urinary calculi (ICD-10) Social History Smoking Status: Never smoker Do you use any of these nicotine containing products: None Second hand tobacco smoke exposure: No How often do you have a drink containing alcohol: monthly or less How many standard drinks containing alcohol do you have on a typical day: 1 or 2 How often do you have six or more drinks on one occasion: Never AUDIT-C Alcohol total score: 1 Non-prescribed substance use: denies use Exam Const: Vital Signs, click to edit/add: Vital Signs - 24 hr 11/03/24 08:44 Temperature 100.2 F H Pulse Rate [Pulse Oximeter] 106 H Respiratory Rate 18 Blood Pressure [Ri ght Upper Arm] 167/96 H Pulse Oximetry 92 Oxygen Delivery Me thod Room Air This 69-year-old male is alert, interactive, no apparent distress. Feels warm but skin is dry. Able to speak in complete sentences. Has some coarse coughing during the interaction. Pupils equal round reactive, sclera clear. Speech is normal. Neck is supple, no adenopathy. Lungs are clear, good air entry, no wheezing or crackles. CV regular rate and rhythm, no murmur, normal S1-S2, no S3-S4. Documenting provider has reviewed patient's vital signs: yes Course Course ED Course: Given patient's later development of fever, will look at a portable chest x-ray just to ensure that this is not a pneumonia. Nursing staff has collected the triple viral swab appropriately and is pending. Most certainly has a respiratory infection, consider the viral etiologies plus pneumonia. Reevaluation(s) Time of Reevaluation #1: 11:19 Reevaluation #1: Reviewed with patient and his that he has RSV; we did discuss this virus and is complications. At this time, antibiotics are not indicated. We did discuss that he can have complications of a secondary bacterial pneumonia which is something they should watch for. There are no quick fixes for this virus unfortunately. Data in children show that steroids, nebulizations are not helpful in the general population. Patient has no asthma, no lung history. He is not wheezing today. We discussed symptomatic treatment and ongoing observation. Do recommend that they get a pulse oximeter at home. His chest x- ray is clear at this time. Vital Signs Vital signs: Initial Vital Signs Temperature 100.2 F H 11/03/24 08:44 Temperature Source Temporal Artery Scan 11/03/24 08:44 Pulse Rate 106 H 11/03/24 08:44 Respiratory Rate 18 11/03/24 08:44 Blood Pressure 167/96 H 11/03/24 08:44 Blood Pressure Mean 119 H 11/03/24 08:44 Blood Pressure Position Sitting 11/03/24 08:44 Pulse Oximetry 92 11/03/24 08:44 Oxygen Delivery Method Room Air 11/03/24 08:44 Vital Signs Temperature 100.2 F H 11/03/24 08:44 Pulse Rate 106 H 11/03/24 08:44 Respiratory Rate 18 11/03/24 08:44 Blood Pressure 167/96 H 11/03/24 08:44 Pulse Oximetry 92 11/03/24 08:44 Oxygen Delivery Method Room Air 11/03/24 08:44 Temperature 100.2 F H 11/03/24 08:44 Pulse Rate 106 H 11/03/24 08:44 Respiratory Rate 18 11/03/24 08:44 Blood Pressure 167/96 H 11/03/24 08:44 Pulse Oximetry 92 11/03/24 08:44 Oxygen Delivery Method Room Air 11/03/24 08:44 Medical Decision Making Lab Data Lab results reviewed: Yes I reviewed the patient's lab results Labs: Lab Results 11/03/24 Range/Units 08:52 SARS-CoV-2 (PCR) Negative SARS-CoV-2 (Negative) Influenza Type A (PCR) Negative PCR FLU A (Negative) Influenza Type B (PCR) Negative PCR FLU B (Negative) RSV (PCR) POSITIVE PCR RSV A (Negative) Imaging Data Chest x-ray: Attestation: I have reviewed the pertinent imaging results. My impression: I do not see any acute pathology on my preliminary review. Radiologist's impression: Patient: LAYTON BULLOCK Facility:?[facility] Patient ID:?[id number] Site Patient ID:?[id number]. Site :?[id number] Study:?XRay-Chest PCXR-11/03/2024 9:58:07 AM Ordering Physician:Mary Serrato Final Report: INDICATION: Cough. Short of breath. TECHNIQUE: Chest 1 view. COMPARISON: None FINDINGS: Cardiovascular and mediastinum: Heart size and vasculature are normal in caliber and appearance. Mediastinum is within normal limits. Lungs and pleural space: Lungs are clear. No sign of infiltrate or mass. No sign of pleural effusion. No pneumothorax. Bones and soft tissues: No significant findings. IMPRESSION: Unremarkable chest. Dictated by Artur Disla MD @ 11/03/2024 10:44:10 AM (Electronic Signature) Discharge Plan Discharge Clinical Impression: RSV infection Qualifiers: RSV infection type: unspecified Qualified Code(s): B33.8 - Other specified viral diseases Patient Disposition: Home, Self-Care Condition: Stable Instructions: RSV (Respiratory Syncytial Virus) Infection (ED) Additional Instructions: Can treat fever with Tylenol or ibuprofen per bottle directions. Can use [id number] medicines for symptom control. If you are using cough or cold medicines, see if they have Tylenol or ibuprofen in them and be careful to not use extra dosages in pill form. Would recommend getting a pulse oximeter and checking if you are feeling you are becoming more short of breath. If your oxygen saturation is consistently below 90%, do need re-evaluation. Would likewise recommend re-evaluation if you feel you are worsening, increased difficulty breathing or not improving within the next week. Activity Level: Activity as Tolerated Prescriptions: No Action No Known Home Medications Follow Up/Referrals: Josafat Do MD [Primary Care Provider] - Stand Alone Forms: [employer] Info Instructions
--- NOTE | 2024-11-03 09:42 | CRLHL7_ITS ---
For Patients: As a result of the Century Cures Act, medical imaging exams and procedure reports are released immediately into your electronic medical record. You may view this report before your referring provider. If you have questions, please contact your health care provider. INDICATION: Cough. Short of breath. TECHNIQUE: Chest 1 view. COMPARISON: None FINDINGS: Cardiovascular and mediastinum: Heart size and vasculature are normal in caliber and appearance. Mediastinum is within normal limits. Lungs and pleural space: Lungs are clear. No sign of infiltrate or mass. No sign of pleural effusion. No pneumothorax. Bones and soft tissues: No significant findings. IMPRESSION: Unremarkable chest. Dictated by Artur Disla MD @ 11/03/2024 10:44:10 AM (Electronically Signed)
--- OUTSIDE RECORDS SUMMARY | 2024-11-03 09:50 | XMS_ITS | Clinical Summary ---
Author Organization [place] Address [address] [place] [address] Care Team Providers Care Firer Kiln Name Role Phone Josafat Do MD Primary Care Provider +1- [phone] Allergies No known active allergies Medications No [...] of Treatment Not on file Insurance [id number] [id number] [employer] Advance Directives For more information, please contact: [phone] * Full Code (Latest Code Status on File) Date Activated Date Inactivated Comments 06/21/2016 6:00 PM 06/23/2016 7:21 PM Care Teams Firer Kiln Relationship Specialty Start Date End Date Josafat Do MD PCP - General Family Practice 06/08/16
--- OUTSIDE RECORDS SUMMARY | 2024-11-03 09:50 | XMS_ITS | Clinical Summary ---
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 on file Not on file Not [...] Completed 05/31/2016 Medical Devices Implanted Type Area Tool Dispatcher Device Identifier Shelf Expiration Date Model / Serial / Lot Stent Uret [id number] Contour - [id number] Implanted:Qty: 1 on 01/25/2023 by Moe Ayon MD at [facility] Left: Ureter [facility] 07/22/2025 [id number] / / [id number] Stent Uret [id number] Contour - [id number] Implanted:Qty: 1 on 02/17/2023 by Renaldo Moser MD at [facility] Left: Ureter [facility] 10/14/2025 [id number] / / [id number] Procedures Procedure Name Priority Date/Time Associated Diagnosis Comments SCAN-COLONOSCOPY 09/25/2018 12:0 0 PM PLASTER AND STUCCO WORKER LIPID PANEL Routine 01/23/2010 8:36 AM CDT Screening for lipoid disorders from Last 3 Months or Most Recently Relevant to Health Maintenance Results * SCAN-COLONOSCOPY (09/25/2018 12:00 PM PLASTER AND STUCCO WORKER) us Scanner OTHER Final Result * (ABNORMAL) LIPID PANEL (01/23/2010 8:36 AM CDT) CHOLESTEROL,TOTAL 206(H) 110 - 199 mg/dL [facility] TRIGLYCERIDES 174(H) <150 mg/dL [facility] HDL CHOLESTEROL 47 >40 mg/dL [facility] CHOL/HDL RATIO 4.38 <4.51 [facility] LDL CHOLESTEROL 124 <131 mg/dL [facility] PATIENT STATUS Fasting [facility] Blood specimen (specimen) BLOOD SPECIMEN / Unknown 01/23/2010 8:36 AM CDT 01/23/2010 8:31 AM CDT us Josafat Do MD CHEMISTRY Final Resu lt [facility] [address] [place], [place] [id number] from Last 3 Months or Most Recently Relevant to Health Maintenance Insurance [employer] ONLY [employer] SOLUTION HB MEDICARE PART A HB ONLY MEDICARE PART B HB ONLY [employer] Member Subscriber Plan / Payer (Ef fective 2018-Present) Name:CeeAdán Member ID:[id number] Relation to Subscriber:Self Name:CeeAdán Subscriber ID:[id number] Payer ID:Not on file Group ID:Not on file Type:Not on file Address: [address] [place] [address] Advance Directives Documents on File Type Date Recorded Patient Conveyor Line Bakery Worker Expl anation Healthcare Directive 08/01/2018 018 * Full Code (Latest Code Status on File) Date Activated Date Inactivated Comments 02/17/2023 7:42 AM 02/17/2023 3:11 PM Question Answer Comments Code Status Discussion: Not Discussed * Full Code Date Activated Date Inactivated Comments 01/24/2023 10:02 PM 01/26/2023 4:56 PM Question Answer Comments Code Status Discussion: Reviewed Preferences Care Teams Life Advisor Relationship Specialty Start Date End Date Josafat Do MD [address] [place] [address] PCP - General 12/31/09 Maurice Roa MD [address] [place] [address] Urology Surgery - Urology 12/09/11
--- OUTSIDE RECORDS SUMMARY | 2024-11-03 09:50 | XMS_ITS | Referral Summary ---
Author Organization [place] Address [address] [place] [address] Care Team Providers Care Account Collector Name Role Phone Josafat Do MD Primary Care Provider +1- [phone] Allergies No known active allergies Medications No [...] of Treatment Not on file Insurance [id number] [id number] [employer] Advance Directives For more information, please contact: [phone] * Full Code (Latest Code Status on File) Date Activated Date Inactivated Comments 06/21/2016 6:00 PM 06/23/2016 7:21 PM Care Teams Account Collector Relationship Specialty Start Date End Date Josafat Do MD PCP - General Family Practice 06/08/16
[2024-11-03 11:05] LABS: PCR FLU A Negative PCR FLU A (Negative); PCR FLU B Negative PCR FLU B (Negative); PCR RSV POSITIVE PCR RSV (Negative); SARS PCR* Negative SARS-CoV-2 (Negative)
== END 2024-11-03 11:31 | disposition home or self-care (01) ==
PROVIDERS: Emergency Provider Family Medicine; PCP Family Medicine
DX: R05.9 Cough, unspecified (principal); B97.4 Respiratory syncytial virus as the cause of diseases classified elsewhere
CPT/HCPCS: 71045; 87631; 99283